=== PATIENT | male | born 1950 | race Caucasian/White ===

== ENCOUNTER → 2019-02-22 | Outpatient (CLI) | payer MEDICARE ==
[2019-02-22 16:26] LABS: HCT 49.2 % (39.0-53.0); HGB 16.5 gm/dL (13.0-17.5); MCH 29.8 pg (25.0-35.0); MCHC 33.6 g/dL (31.0-37.0); MCV 88.6 fL (80.0-100.0); Mean Platelet Volume 8.2; Platelet Count 246 k/uL (150-450); RBC 5.55 m/uL (4.30-5.90); RDW 14.6 % (11.5-15.5); WBC 10.2 k/uL (3.8-10.6)
[2019-02-22 16:45] LABS: Potassium 4.4 mmol/L (3.5-5.1)
== END | disposition home or self-care (01) ==
LOC: LABWHC1 15:47
PROVIDERS: ATTEND Internal Medicine Cardiovascular Disease
DX: Z01.812 Encounter for preprocedural laboratory examination (principal); I48.1 Persistent atrial fibrillation; I10 Essential (primary) hypertension
CPT/HCPCS: 36415; 80051; 82565; 82947; 84520; 85027

== ENCOUNTER 2019-02-24 07:35 | Day surgery (SDC) | payer MEDICARE ==
[2019-02-23 14:59] VITALS: BMI 36.5
[~2019-02-24 07:35] MED LIST: LACTATED RINGERS 1,000 ML IV SCH; SODIUM CHLORIDE 0.9% 1,000 ML IV SCH
[2019-02-24 08:02] LABS: Glucose,Whole Blood 135 mg/dL (75-99)
[2019-02-24] MEDS: BENZOCAINE SPRAY 1 CAN MUCOUS MEM ONE ×2 (08:49→08:56)
[2019-02-24] MEDS ORDERED: PROPOFOL 10 MG/ML 20 ML VIAL IV ONE (08:55)
[2019-02-24] MEDS ORDERED: SODIUM CHLORIDE 0.9% 1,000 ML IV SCH (09:15)
[2019-02-24 09:21] VITALS: TEMP 97
--- NOTE | 2019-02-24 09:35 | ECHOT ---
TRANSESOPHAGEAL ECHOCARDIOGRAM TRANSESOPHAGEAL ECHO: INDICATION: Chronic atrial fibrillation. PROCEDURE NOTE: After obtaining informed consent, transesophageal echocardiogram was performed in left lateral position using an Omni plane probe. Local and IV sedation were obtained by the orthopedic brace maker. Patient tolerated the procedure well without any obvious immediate complications. FINDINGS: 1. There is no intracardiac thrombus within the left atrial appendage, left atrium, right atrium, right ventricle or left ventricle. 2. Left ventricle has normal size and systolic function. 3. Mitral valve appears anatomically normal. There is mild mitral regurgitation noted. 4. There is mild tricuspid regurgitation noted. 5. Aortic valve is a 3-leaflet valve. There is no evidence of aortic stenosis or regurgitation. 6. Interatrial septum, there is no evidence of [id number] shunt by color flow Doppler or [id number]-gc-[id number] shunt by agitated saline contrast study. 7. 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 CONCLUSION: 1. No intracardiac thrombus. 2. Normal left ventricular systolic function. PLAN: Patient will proceed with cardioversion. CARDIOVERSION NOTE: INDICATION: Chronic atrial fibrillation. After making sure that there is no intracardiac thrombus with a transesophageal echo and adequate anticoagulation with Eliquis, patient underwent electrical cardioversion with synchronized DC current. He was shocked once and converted to sinus rhythm with 300 joules. Post cardioversion EKG will be obtained. MMODL / IJN: [id number] /
[2019-02-24 10:19] VITALS: BP 134/89; RESP 18
[2019-02-24 10:37] VITALS: PULSE 74
== END 2019-02-24 10:49 | disposition home or self-care (01) ==
LOC: CATHCVL 07:35
PROVIDERS: ATTEND Internal Medicine Cardiovascular Disease
DX: I48.2 Chronic atrial fibrillation (principal); I08.1 Rheumatic disorders of both mitral and tricuspid valves; I10 Essential (primary) hypertension; E78.2 Mixed hyperlipidemia; G47.33 Obstructive sleep apnea (adult) (pediatric); E11.9 Type 2 diabetes mellitus without complications; K22.70 Barrett's esophagus without dysplasia; Z79.82 Long term (current) use of aspirin; Z79.899 Other long term (current) drug therapy; Z79.84 Long term (current) use of oral hypoglycemic drugs; Z79.01 Long term (current) use of anticoagulants; Z72.0 Tobacco use
CPT/HCPCS: 93312; 93325; 92960; J2704; 93320

== ENCOUNTER → 2019-04-25 | Outpatient (CLI) | payer MEDICARE ==
[2019-04-25 11:27] LABS: HCT 43.6 % (39.0-53.0); HGB 14.9 gm/dL (13.0-17.5); MCH 30.5 pg (25.0-35.0); MCHC 34.3 g/dL (31.0-37.0); Mean Platelet Volume 8.4; Platelet Count 182 k/uL (150-450); RDW 15.6 % (11.5-15.5)
[2019-04-25 11:44] LABS: Magnesium 2.1 mg/dL (1.6-2.3)
== END | disposition home or self-care (01) ==
LOC: LABPAT 10:13
PROVIDERS: ATTEND Internal Medicine Cardiovascular Disease
DX: Z01.812 Encounter for preprocedural laboratory examination (principal); R06.02 Shortness of breath
CPT/HCPCS: 36415; 82565; 83735; 84520; 85027

== ENCOUNTER 2019-04-27 07:37 | Day surgery (SDC) | payer MEDICARE ==
[2019-04-25 12:26] VITALS: BMI 37.0
[~2019-04-27 07:37] MED LIST changes: +ALPRAZolam 0.25 MG TAB PO PRN; +ALPRAZolam 0.5 MG TAB PO PRN; +ASPIRIN 325 MG TAB PO ONE; +ATORVASTATIN 80 MG TAB PO ONE; -LACTATED RINGERS 1,000 ML IV SCH; +NITROGLYCERIN SL TABS 0.4 MG TAB SUBLINGUAL PRN; -SODIUM CHLORIDE 0.9% 1,000 ML IV SCH; +SODIUM CHLORIDE 0.9% 1,000 ML in EMPTY BAG 1 BAG IV ONE
[2019-04-27 08:28] LABS: Glucose,Whole Blood 137 mg/dL (75-99)
[2019-04-27 08:38] VITALS: PULSE 62
[2019-04-27] MEDS ORDERED: IV FLUID CONTINUATION 950 ML IV ONE (08:44)
[2019-04-27] MEDS: MIDAZOLAM (PF) 2 MG/2 ML VIAL IV ONE ×2 (09:00→09:01)
[2019-04-27] MEDS ORDERED: fentaNYL (PF) 50 MCG/ML 2 ML AMP IV ONE (09:00)
[2019-04-27] MEDS ORDERED: LIDOCAINE 1% INJ 10MG/ML (20 ML MDV) SQ ONE (09:00)
[2019-04-27] MEDS ORDERED: IOPAMIDOL-370 50ML BTL INJ ONE (09:22)
[2019-04-27] MEDS ORDERED: IOPAMIDOL-370 125ML BTL INJ ONE (09:22)
[2019-04-27] MEDS ORDERED: IOPAMIDOL-370 100ML BTL INJ ONE (09:26)
[2019-04-27] MEDS ORDERED: SODIUM CHLORIDE 0.9% 1,000 ML IV SCH (09:30)
[2019-04-27] MEDS ORDERED: RX INFO: IV CONTRAST WAS GIVEN 1 EACH MISC MISCELLANE PRN (09:30)
--- NOTE | 2019-04-27 09:47 | CC ---
CARDIAC CATHETERIZATION REPORT INDICATION: Unstable angina. PROCEDURE NOTE: After obtaining informed consent, left heart catheterization and coronary angiogram are performed via the right femoral artery using standard Kayleen catheters. Patient tolerated the procedure well without any obvious immediate complications. A femoral angiogram was performed and Angio-Seal will be deployed for hemostasis. Patient received moderate conscious sedation. Total sedation time was 25 minutes. We went to multiple catheter exchanges including right Kayleen, Dimas, posterior and jason, ultimately engaged the right with an Amplatz catheter. FINDINGS: HEMODYNAMICS: Left ventricular end-diastolic pressure is 18-24 mm. There is no significant gradient across the aortic valve. LEFT VENTRICULOGRAM: Left ventriculogram is not performed. ANGIOGRAPHIC DATA: LEFT MAIN CORONARY ARTERY: Left main coronary artery is a normal-sized vessel, appears calcified but is free of significant stenosis. Divides into left anterior descending coronary artery and circumflex coronary artery. LAD appears calcified. There is a moderate area of atherosclerotic plaque in its midportion which at its worst seems to be 40% stenosed. CIRCUMFLEX CORONARY ARTERY is free of significant stenosis. RIGHT CORONARY ARTERY is a large dominant vessel, shows mild diffuse disease. CONCLUSION: Mild to moderate nonobstructive coronary artery disease. PLAN: Patient's management is going to be in the form of risk factor modification and medical therapy angiographic data was reviewed by Dr. Sonido Anguiano the on-call stacker driver. MMBOYL / CHARMAINEN: [id number] /
[2019-04-27 14:59] VITALS: BP 121/72; RESP 18
== END 2019-04-27 14:45 | disposition home or self-care (01) ==
LOC: CATHCVL 07:37
PROVIDERS: ATTEND Internal Medicine Cardiovascular Disease
DX: I25.110 Atherosclerotic heart disease of native coronary artery with unstable angina pectoris (principal); I25.84 Coronary atherosclerosis due to calcified coronary lesion; I10 Essential (primary) hypertension; I48.1 Persistent atrial fibrillation; E78.5 Hyperlipidemia, unspecified; Z72.0 Tobacco use; Z79.01 Long term (current) use of anticoagulants; Z79.84 Long term (current) use of oral hypoglycemic drugs; Z79.82 Long term (current) use of aspirin; Z79.899 Other long term (current) drug therapy
CPT/HCPCS: 93458; 84132; C1760; C1894; C1769; J2001; J3010; Q9967 ×3; J2250